=== PATIENT | male | born 1995 | race Caucasian/White ===

== ENCOUNTER 2018-09-30 13:56 | Emergency (ER) | payer SELFPAY ==
--- NOTE | 2018-09-30 14:09 | NUR ---
[id number]
--- NOTE | 2018-09-30 14:20 | NUR ---
NA X 2
--- NOTE | 2018-09-30 14:43 | NUR ---
NA X 3
== END 2018-09-30 14:44 | disposition left against medical advice (07) ==
LOC: ED 14:38
DX: R07.9 Chest pain, unspecified (principal); R51 Headache; Z53.21 Procedure and treatment not carried out due to patient leaving prior to being seen by health care provider

== ENCOUNTER 2018-10-17 22:43 | Emergency (ER) | payer SELFPAY ==
[~2018-10-17] VITALS: Ht 170.2 cm; Wt 81.2 kg
[2018-10-17 22:56] VITALS: BP 133/75
== END 2018-10-17 23:54 | disposition home or self-care (01) ==
LOC: ED 23:30
DX: R51 Headache (principal)
CPT/HCPCS: 99281

== ENCOUNTER 2019-08-29 00:06 | Emergency (ER) | payer SELFPAY ==
[~2019-08-29] VITALS: Ht 172.7 cm; Wt 80.0 kg
[2019-08-29 00:07] VITALS: BP 133/72
--- NOTE | 2019-08-29 00:22 | NUR ---
Collected urine sample. ERP at bedside for eval
[2019-08-29] MEDS ORDERED: CEFTRIAXONE 250 MG ONE (00:29)
[2019-08-29] MEDS ORDERED: CEFTRIAXONE 1,000 MG IM ONE (00:30)
[2019-08-29] MEDS ORDERED: AZITHROMYCIN 500 MG TABLET ONE (00:30)
[2019-08-29] MEDS ORDERED: AZITHROMYCIN 500 MG TABLET PO ONE (00:30)
[2019-08-29 00:36] LABS: CULTURE INDICATED? YES; MICROSCOPIC INDICATED
--- NOTE | 2019-08-29 00:40 | NUR ---
Medicated per MAR.
== END 2019-08-29 01:26 | disposition home or self-care (01) ==
LOC: ED 00:53
DX: N34.2 Other urethritis (principal)
CPT/HCPCS: 81001; 87077; 87086; 87491; 87591; 96372; 99283; J0696